=== PATIENT | female | born 1960 | race Asian ===

== ENCOUNTER 2017-05-17 06:09 | Inpatient (IN) | payer OTHER ==
[~2017-05-17] VITALS: Ht 162.6 cm; Wt 46.9 kg
--- NOTE | 2017-05-17 07:17 | NUR ---
PT BIB FAMILY C/C BODY ACHE WITH ITCHING STS OFF AND ON X [address] CONNIE ARGUELLES
--- NOTE | 2017-05-17 07:50 | NUR ---
PLEASE ENTER FULL NAMES OF SOCK BOARDER/RN Patient data collected by (SOCK BOARDER): Mena TANG Assessment reviewed and completed by (RN): Lian PATE
--- NOTE | 2017-05-17 10:35 | NUR ---
DR LAM AT BEDSIDE TO KINDRA
--- NOTE | 2017-05-17 10:56 | NUR ---
MEDICATED ORDERED THEN TAKEN TO RADIOLOGY FOR XRAY
[2017-05-17 11:15] LABS: microscopic required? NO
[2017-05-17 11:30] LABS: UA SPECIFIC GRAVITY <=1.005 (1.005-1.035); urine erythrocyte NEGATIVE (NEGATIVE)
[2017-05-17 11:32] LABS: BASOPHIL % 0.6 % (0-2)
[2017-05-17 11:33] LABS: AMPHETAMINE QUAL UR NONE DETECTED (NEG <=1000)
[2017-05-17 11:34] LABS: PLATELET COUNT 721 x10^3mcL (130-400)
[2017-05-17 11:37] LABS: CARBON DIOXIDE 29.4 mmol/L (21-32); CHLORIDE SERUM 103 mmol/L (98-107); CREATININE SERUM 0.7 mg/dL (0.6-1.0); GFR1 > 60 mL/min; GLUCOSE SERUM 90 mg/dL (74-106); SODIUM SERUM 140 mmol/L (136-145)
[2017-05-17 11:49] LABS: ALKALINE PHOSPHATASE 51 U/L (46-116); ALT/SGPT 46 U/L (14-59); AMYLASE 60 U/L (25-115); AST/SGOT 36 U/L (15-37); BILIRUBIN TOTAL 0.4 mg/dL (0.20-1.00); CHOLESTEROL 198 mg/dL (<200); HDL CHOLESTEROL 36 mg/dL (40-60); LIPASE 92 IU/L (73-393); T4(THYROXINE) 4.6 ug/dL (4.7-13.3); TOTAL PROTEIN, SERUM 8.8 g/dL (6.4-8.2)
[2017-05-17 12:25] LABS: ERYTHROCYTE SED RATE 99 mm/hr (0-30)
--- NOTE | 2017-05-17 13:29 | NUR ---
PT ADMIT TO TELE ROOM 225B GAVE REPORT TO CHAD
[2017-05-17 14:43] LABS: ALKALINE PHOSPHATASE 52 U/L (46-116); ALT/SGPT 47 U/L (14-59); AST/SGOT 36 U/L (15-37); BILIRUBIN DIRECT 0.09 mg/dL (0.0-0.2); BILIRUBIN TOTAL 0.4 mg/dL (0.20-1.00); CARBON DIOXIDE 25.1 mmol/L (21-32); CHLORIDE SERUM 104 mmol/L (98-107); CREATININE SERUM 0.6 mg/dL (0.6-1.0); GFR1 > 60 mL/min; GLUCOSE SERUM 83 mg/dL (74-106); HDL CHOLESTEROL 37 mg/dL (40-60); LACTIC DEHYDROGENASE (LDH) 372 U/L (100-190); MAGNESIUM 1.9 mg/dL (1.8-2.4); SODIUM SERUM 138 mmol/L (136-145); TRIGLYCERIDES 86 mg/dL (<150)
[2017-05-17 14:44] LABS: CHOLESTEROL 202 mg/dL (<200); CHOLESTEROL/HDL RATIO 5.5; TOTAL PROTEIN, SERUM 8.8 g/dL (6.4-8.2)
[2017-05-17 14:47] LABS: T3 TOTAL 0.88 ng/mL
[2017-05-17 14:56] LABS: FREE T4 0.99 ng/dL (0.76-1.46); T4(THYROXINE) 5.6 ug/dL (4.7-13.3)
--- NOTE | 2017-05-17 15:20 | NUR ---
RECEIVED PT. FROM ER DEPT. A/A/O X4. NO SOB, NO N/V NOTED. DENIES ANY PAIN AT THIS TIME. FAMILY MEMBERS AT BEDSIDE. B/P= 124/75, P= 71, R.R.= 20, TEMP.= 98.6, O2 SAT.= 98% (RA). PT. STATED THAT HER ENTIRE BODY STARTED TO GET REALLY ITCHY LAST NIGHT. PT. ALSO EXPLAINED THAT THE SAME THING (ITCHINESS) ALSO HAPPENED TO HER ABOUT 3 MONTHS AGO. SKIN IS INTACT BUT APPEARS TIGHT AND DARK THROUGHOUT THE BODY. NON-PITTING EDEMA NOTED TO BLE AND TO BUE (TRACE). PT. REPORTED THAT SHE NOTICED THE SWELLING OF HER BUE AND BLE AND THE TIGHT, DARK SKIN THROUGHOUT HER ENTIRE BODY SINCE NOVEMBER 2016. IV H/L NOTED TO R AC. PT. IS PLACED ON TELE. MONITOR #8, WHICH SHOWS NSR. PT. DENIES BODY ITCHINESS AT THIS TIME. PT. ALSO MENTIONED THAT SHE LOST 32 LBS IN THE LAST 3 MONTHS INCLUDING LOSS OF APPETITE. BED IN LOW POS., CALL LIGHT WITHIN REACH. SIDE RAILS UP X3.
[2017-05-17 15:24] VITALS: BP 124/75
[2017-05-17 16:22] VITALS: BP 124/75
[2017-05-17 18:07] VITALS: BP 118/75
--- NOTE | 2017-05-17 18:14 | NUR ---
REMAINS IN STABLE CONDITION AT THIS TIME. NO ACUTE DISTRESS NOTED.
--- NOTE | 2017-05-17 19:35 | NUR ---
PT ALERT/ORIENTED X4. NO C/O PAIN. TELE # 8. SR, HR; 86. PT SON AND PT NIECE IN ROOM. PT ASSESSED; SEE NSG FLOWSHEET. SAFETY REINFORCED; SEE EDUCAT SHEET. WILL CONTINUE TO MONITOR.
[2017-05-17 21:45] VITALS: BP 114/64
--- NOTE | 2017-05-17 22:18 | NUR ---
NEURO ASSESSMENT: ALERT/ORIENTED X4, NO C/O DIZZINESS. PERRLA. WILL CONTINUE TO MONITOR.
--- NOTE | 2017-05-17 22:28 | NUR ---
PT TO CT FOR CT OF THE HEAD. PT NO C/O DIZZINESS. NO DISTRESS NOTED.
--- NOTE | 2017-05-17 22:38 | NUR ---
PT BACK FROM CT. NO DISTRESS NOTED.
--- NOTE | 2017-05-17 23:40 | NUR ---
RECEIVED WRITTEN CONSENT FROM PT TO HAVE MED RECORDS FAXED HERE FROM 03/26 AND 05/26. PT DAUGHTER TRANSLATED, PT SPEAKS BELARUSIAN.
--- NOTE | 2017-05-18 01:45 | NUR ---
PT SLEEPING. NO DISTRESS NOTED. WILL CONTINUE TO MONITOR.
--- NOTE | 2017-05-18 04:08 | NUR ---
PT SLEEPING. NO DISTRESS NOTED. WILL CONTINUE TO MONITOR.
--- NOTE | 2017-05-18 05:06 | NUR ---
PT SLEPT IN LONG INTERVALS THROUGHOUT THE NIGHT. NO DISTRESS NOTED. NO C/O PAIN. WILL CONTINUE TO MONITOR.
--- NOTE | 2017-05-18 06:43 | NUR ---
US OF THE CAROTID ARTERY BEING PERFORMED AT THIS TIME
[2017-05-18 06:50] LABS: ALKALINE PHOSPHATASE 41 U/L (46-116); ALT/SGPT 64 U/L (14-59); AST/SGOT 41 U/L (15-37); BILIRUBIN DIRECT 0.13 mg/dL (0.0-0.2); BILIRUBIN TOTAL 0.37 mg/dL (0.20-1.00); CALCIUM 8.5 mg/dL (8.5-10.1); CARBON DIOXIDE 23.7 mmol/L (21-32); CHLORIDE SERUM 109 mmol/L (98-107); CREATININE SERUM 0.6 mg/dL (0.6-1.0); GFR1 > 60 mL/min; GLUCOSE SERUM 119 mg/dL (74-106); POTASSIUM SERUM 4.1 mmol/L (3.5-5.1); SODIUM SERUM 145 mmol/L (136-145); TOTAL PROTEIN, SERUM 7.8 g/dL (6.4-8.2)
[2017-05-18 06:59] LABS: ALBUMIN 2.5 g/dL (3.4-5.0)
[2017-05-18 07:00] VITALS: BP 107/61
[2017-05-18 07:25] LABS: BASOPHIL % 0.1 % (0-2)
[2017-05-18 07:26] LABS: PLATELET COUNT 676 x10^3mcL (130-400); RED CELL DISTRIBUTION WIDTH 18.1 % (11.5-14.5)
--- NOTE | 2017-05-18 07:30 | NUR ---
RECEIVED PT. IN BED A/A/O X3. NO SOB, NO N/V NOTED. DENIES ANY PAIN AT THIS TIME. DAUGHTER AT BEDSIDE. NS RUNNING AT 10 CC/HR. VIA IV H/L AT R AC. SCD APPLIED TO BLE. BED IN LOW POS., CALL LIGHT WITHIN REACH. SIDE RAILS UP X3.
--- NOTE | 2017-05-18 08:42 | NUR ---
DR. FONTENOT, THE RESIDENTS, CHARGE NURSE, AND ATTENDING NURSE AT BEDSIDE. CAREPLAN DISCUSSED WITH PT. ALL QUESTIONS ANSWERED.
[2017-05-18 10:13] VITALS: BP 113/64
--- NOTE | 2017-05-18 12:48 | NUR ---
URINE COLLECTED AND SENT TO LAB. FOR URINE C/S.
[2017-05-18 14:46] VITALS: BP 106/62
[2017-05-18] MEDS ORDERED: ZOF4 PO (17:57)
--- NOTE | 2017-05-18 18:31 | NUR ---
D/C HOME INSTRUCTIONS GIVEN TO PT. AND PT.'S SON (MR. ALEXANDRIA BLEDSOE) WITH VERBALIZATION OF UNDERSTANDING. PT.'S SON HELPED TRANSLATE FOR THE DISCHARGE INSTRUCTIONS. IV H/L TO R AC REMOVED. TELE. MONITOR #8 REMOVED AND RETURNED TO TELE. MONITOR STATION. PRESCRIPTION GIVEN.
--- NOTE | 2017-05-18 18:47 | NUR ---
PT. IS BEING DISCHARGED IN STABLE CONDITION VIA WHEELCHAIR. ALL BELONGINGS SENT HOME WITH PT. UPON DISCHARGE.
== END 2017-05-18 18:52 | disposition home or self-care (01) | DRG 190 ==
LOC: ED 06:09 → DU 13:04
PROVIDERS: Emergency Medicine; ADMIT Family Medicine
DX: I21.3 ST elevation (STEMI) myocardial infarction of unspecified site (principal); N17.0 Acute kidney failure with tubular necrosis; E87.6 Hypokalemia; D64.9 Anemia, unspecified; G90.9 Disorder of the autonomic nervous system, unspecified; E44.0 Moderate protein-calorie malnutrition; D47.3 Essential (hemorrhagic) thrombocythemia; M35.1 Other overlap syndromes; E78.2 Mixed hyperlipidemia; R73.03 Prediabetes; M94.0 Chondrocostal junction syndrome [Tietze]; K21.9 Gastro-esophageal reflux disease without esophagitis
CPT/HCPCS: 83880; 84439; J1200; J2930; J7030; Q0092

== ENCOUNTER 2017-07-19 20:16 | Emergency (ER) | payer OTHER ==
[~2017-07-19 20:16] MED LIST: ZOF4 PO
[2017-07-19 21:14] LABS: BASOPHIL % 0.4 % (0-2)
[2017-07-19 21:18] LABS: CALCIUM 8.6 mg/dL (8.5-10.1); CARBON DIOXIDE 30.9 mmol/L (21-32); CHLORIDE SERUM 101 mmol/L (98-107); CREATININE SERUM 0.7 mg/dL (0.6-1.0); GFR1 > 60 mL/min; GLUCOSE SERUM 123 mg/dL (74-106); POTASSIUM SERUM 3.9 mmol/L (3.5-5.1); SODIUM SERUM 138 mmol/L (136-145)
[2017-07-19 21:19] LABS: PLATELET COUNT 446 x10^3mcL (130-400); RED CELL DISTRIBUTION WIDTH 16.9 % (11.5-14.5)
[2017-07-19 21:23] LABS: ALKALINE PHOSPHATASE 76 U/L (46-116); ALT/SGPT 31 U/L (14-59); AST/SGOT 24 U/L (15-37); BILIRUBIN TOTAL 0.4 mg/dL (0.20-1.00); LIPASE 94 IU/L (73-393); MAGNESIUM 1.8 mg/dL (1.8-2.4); TOTAL PROTEIN, SERUM 8.2 g/dL (6.4-8.2)
[2017-07-19 21:25] LABS: ALBUMIN 3.1 g/dL (3.4-5.0)
[2017-07-19 22:44] LABS: microscopic required? YES; urine erythrocyte NEGATIVE (NEGATIVE)
[2017-07-20 01:30] VITALS: BP 114/76
== END 2017-07-20 01:30 | disposition home or self-care (01) ==
LOC: ED 20:16
PROVIDERS: Emergency Medicine
DX: L94.0 Localized scleroderma [morphea] (principal); R00.2 Palpitations; E78.00 Pure hypercholesterolemia, unspecified
CPT/HCPCS: J1885; J2930; J7030; Q0092